=== PATIENT | female | born 1955 | race Hispanic/Latino ===

== ENCOUNTER 2018-06-25 09:04 | Day surgery (SDC) | payer OTHER ==
[2018-06-24 13:37] VITALS: BMI 29.5
[2018-06-25] MEDS ORDERED: Propofol 10 mg/ml Inj (20 ML) ONE (11:31)
[2018-06-25] MEDS ORDERED: Lactated Ringer's 500 ML IV ONE ×2 (11:32)
[2018-06-25 11:37] VITALS: PULSE 76; RESP 11; O2SAT 98
[2018-06-25] MEDS ORDERED: Lactated Ringer's 500 ML IV SCH (11:45)
[2018-06-25 12:37] VITALS: BP 119/69
== END 2018-06-25 12:40 | disposition home or self-care (01) ==
LOC: C.ENDO 09:04
PROVIDERS: ATTEND Internal Medicine Gastroenterology
DX: D12.5 Benign neoplasm of sigmoid colon (principal); Z12.11 Encounter for screening for malignant neoplasm of colon; K64.1 Second degree hemorrhoids; K57.90 Diverticulosis of intestine, part unspecified, without perforation or abscess without bleeding; E78.5 Hyperlipidemia, unspecified; Z80.1 Family history of malignant neoplasm of trachea, bronchus and lung
CPT/HCPCS: 45380; 45385; 88305; J2704; J7120